=== PATIENT | female | born 1980 | race Caucasian/White ===

== ENCOUNTER 2016-08-20 09:01 | Emergency (ER) | payer OTHER ==
[2016-08-20 09:14] VITALS: BP 117/67; PULSE 90; RESP 16; TEMP 98.1; O2SAT 96
--- NOTE | 2016-08-20 09:55 | UCPHY ---
H & P Time Seen by Provider: 08/20/16 09:40 Patient Type: New HPI/ROS: This patient has sinus pressure in the maxillary sinus region after nasal congestion for 3 weeks. The onset of the pain was over the past 4 5 days and is moderate in intensity. She has partial relief from ibuprofen with no other exacerbating factors. She has tried Mucinex in addition. Symptoms feel like prior sinusitis. She also has mild left-sided sore throat. Her sore throat is also moderate intensity. ROS: Constitutional: No high fevers or chills. Neuro: No confusion. pulmonary: No significant coughing. 5 point ROS is otherwise negative. Smoking Status: Never smoked Physical Exam: Physical Exam Vital signs are normal. General: No acute distress HEENT: Nose: Swollen nasal mucosa bilaterally with green yellow discharge. She has maxillary sinus tenderness to percussion in the left side. Ears: External canals and TMs are clear bilaterally oropharynx: No significant erythema, exudates or dysphonia. Eyes: Pupils equal and react to light. Extraocular motions are intact. Neck: Supple Lungs: Clear to auscultation bilaterally. No respiratory distress. Cardiac: Regular rate and rhythm with no murmur gallop or rub Skin: No rash or pallor. Neuro: Alert with no sensorimotor deficits. Initial differential diagnosis: Viral rhinosinusitis versus bacterial sinusitis , viral pharyngitis versus strep pharyngitis Constitutional: Initial Vital Signs Temperature (C) 36.7 C 08/20/16 09:05 Heart Rate 90 08/20/16 09:05 Respiratory Rate 16 08/20/16 09:05 Blood Pressure 117/67 08/20/16 09:05 O2 Sat (%) 96 08/20/16 09:05 O2 Delivery Mode Room Air Allergies/Adverse Reactions: tramadol Allergy (Verified 01/17/12 21:39) Other-Enter Comments Home Medications: Medication Instructions Recorded Azithromycin [Zithromax] 250 mg PO DAILY #6 tab 08/20/16 Fluconazole [Diflucan] 200 mg PO ONCE #2 tablet 08/20/16 Fluticasone Nasal [Flonase Nasal 2 sprays NASAL DAILY #1 mdi 08/20/16 [place] (RX)] Medical Decision Making ED Course/Re-evaluation: Studies: Rapid strep is negative - Data Points Laboratory Results: 01/16/17 01/16/17 Unknown 09:20 Group A Strep Screen NEGATIVE (NEGATIVE) Group A Strep DNA Pending Departure - Departure Disposition: Home, Routine, Self-Care Clinical Impression: Acute sinusitis Instructions: Sinusitis (ED) Additional Instructions: Diagnosis: Acute sinusitis Plan: Humidifier Flonase steroid nasal spray Zithromax antibiotic Continue ibuprofen & guaifenesin Return for any significant worsening despite the treatment Referrals: NONE *PRIMARY CARE P,. [Primary Care Provider] - As per Instructions Prescriptions: Fluconazole [Diflucan] 200 mg PO ONCE #2 tablet Fluticasone Nasal [Flonase Nasal [place] (RX)] 2 sprays NASAL DAILY #1 mdi Azithromycin [Zithromax] 250 mg PO DAILY #6 tab - PQRS PQRS Measurement: NA
== END 2016-08-20 10:00 | disposition home or self-care (01) ==
LOC: CED 09:01
DX: J01.90 Acute sinusitis, unspecified (principal)
CPT/HCPCS: 87880-PO; G0463-PO

== ENCOUNTER → 2017-05-24 | Outpatient (CLI) | payer OTHER | LOC: CIMAGING 08:49 | PROVIDERS: ATTEND Physician Assistant | DX: K83.8 Other specified diseases of biliary tract (principal) | CPT/HCPCS: 76700-PO ==

== ENCOUNTER → 2017-05-31 | Outpatient (CLI) | payer OTHER ==
[~2017-05-31] MED LIST: IOPAMIDOL (ISOVUE-300) 100 ML BTL ONE
== END ==
LOC: FIMAGING 16:04
PROVIDERS: ATTEND Internal Medicine
DX: R10.84 Generalized abdominal pain (principal)
CPT/HCPCS: Q9967

== ENCOUNTER → 2018-02-04 | Outpatient (CLI) | payer OTHER | LOC: FIMAGING 10:23 | PROVIDERS: ATTEND Obstetrics & Gynecology Gynecology | DX: N94.89 Other specified conditions associated with female genital organs and menstrual cycle (principal) ==

== ENCOUNTER → 2018-02-26 | Outpatient (CLI) | payer OTHER | LOC: FIMAGING 15:45 | PROVIDERS: ATTEND Obstetrics & Gynecology Gynecology | DX: Z71.9 Counseling, unspecified (principal) ==

== ENCOUNTER 2019-01-07 11:53 | Observation (INO) | payer OTHER | END 2019-01-08 11:57 | disposition home or self-care (01) | LOC: F3E 11:53 → FOB 20:00 ==